=== PATIENT | male | born 1965 | race Two or more races ===

== ENCOUNTER 2024-06-18 23:53 | Inpatient (IN) | payer OTHER ==
[~2024-06-18] VITALS: Ht 167.6 cm; Wt 51.5 kg
[2024-06-19] VITALS (7 sets, daily range): BP systolic 122–138; BP diastolic 67–71; TEMP 97–98.1; O2SAT 97–100
[2024-06-19] MEDS ORDERED: FOLI1TAB94 PO (00:17)
[2024-06-19] MEDS ORDERED: ATOR20TA PO (00:17)
[2024-06-19] MEDS ORDERED: AMLO-212 PO (00:17)
[2024-06-19] MEDS ORDERED: CARV3.122 PO (00:17)
[2024-06-19] MEDS ORDERED: CHOL100034 PO (00:17)
[2024-06-19] MEDS ORDERED: CLOP75TA33 PO (00:17)
[2024-06-19] MEDS ORDERED: ASPI-1101 PO (00:17)
[2024-06-19 02:11] LABS: BASOPHILS # (AUTO) 0.1 K/UL (0.0-0.2); BASOPHILS % (AUTO) 1.8 % (0.0-2.0); EOSINOPHILS # (AUTO) 0.3 K/uL (0.0-0.7); EOSINOPHILS % (AUTO) 5.9 % (0.0-7.0); HEMATOCRIT 28.4 % (36.7-47.1); HEMOGLOBIN 9.5 g/dL (12.5-16.3); LYMPHOCYTES # (AUTO) 1.5 K/uL (0.8-4.8); LYMPHOCYTES % (AUTO) 30.4 % (20.5-51.5); MEAN CORPUSCULAR HGB CONC 33 g/dL (32.5-36.3); MEAN CORPUSCULAR VOLUME 90.3 fL (73.0-96.2); MONOCYTES # (AUTO) 0.4 K/uL (0.1-1.30); MONOCYTES % (AUTO) 7.5 % (0.0-11.0); NEUTROPHILS # (AUTO) 2.8 K/uL (1.8-8.9); NEUTROPHILS % (AUTO) 54.4 % (38.5-71.5); PLATELET COUNT (AUTO) 225 K/uL (152-348); RED BLOOD CELL COUNT(AUTO) 3.15 MIL/uL (4.06-5.63); RED CELL DISTRIBUTION WIDTH 20.5 % (12.1-16.2); WHITE BLOOD COUNT (AUTO) 5.1 K/uL (3.6-10.2)
[2024-06-19 02:13] LABS: CALCIUM 8.9 mg/dL (8.5-10.1); CREATININE 2.7 mg/dL (0.6-1.3); DIFFERENTIAL COMMENT 1; POTASSIUM 6.1 mmol/L (3.5-5.1)
[2024-06-19 02:19] LABS: ALBUMIN 2.2 g/dL (3.4-5.0); BILIRUBIN,TOTAL 0.2 mg/dL (0.2-1.0); TOTAL PROTEIN, SERUM 7.6 g/dL (6.4-8.2)
[2024-06-19] MEDS ORDERED: SODIUM BICARBONATE 8.4% 50 MEQ/50 ML DISP.SYRIN IV ONE (03:00)
[2024-06-19] MEDS: SODIUM BICARBONATE 8.4% 50 MEQ/50 ML VIAL IV ONE (03:10)
[2024-06-19] MEDS: IV NORMAL SALINE 1000 ML BAG IV ONE (03:10)
[2024-06-19] MEDS: ALBUTEROL SULFATE 2.5 MG/3 ML NEBU NEB ONE (03:21)
[2024-06-19] MEDS ORDERED: REMEDY ESSENTIAL ZINC PASTE 113 GM TP PRN (03:45)
[2024-06-19] MEDS ORDERED: ACETAMINOPHEN 325 MG TABLET PO PRN (03:45)
[2024-06-19] MEDS ORDERED: ONDANSETRON 4 MG/2 ML VIAL IV PRN (03:45)
[2024-06-19] MEDS ORDERED: MAGNESIUM HYDROXIDE 30 ML LIQUID UDC PO PRN (03:45)
[2024-06-19] MEDS: IV NS 1000 ML 1,000 ML IV PRN (06:54)
[2024-06-19 07:05] LABS: CALCIUM 8.8 mg/dL (8.5-10.1); CREATININE 2.5 mg/dL (0.6-1.3); POTASSIUM 5.4 mmol/L (3.5-5.1)
[2024-06-19] MEDS: AMLODIPINE 5 MG TABLET PO SCH (08:42)
[2024-06-19] MEDS: FOLIC ACID 1 MG TABLET PO SCH (08:42)
[2024-06-19] MEDS: CLOPIDOGREL 75 MG TABLET PO SCH (08:43)
[2024-06-19] MEDS: ASPIRIN EC 81 MG TABLET.DR PO SCH (08:43)
[2024-06-19] MEDS ORDERED: METF-440 PO (10:55)
[2024-06-19] MEDS ORDERED: OMEP20CA15 PO (10:55)
[2024-06-19] MEDS ORDERED: FOLI0.8T2 PO (10:55)
[2024-06-19] MEDS ORDERED: MULT-594 PO (10:55)
[2024-06-19] MEDS ORDERED: SULF1TAB48 PO (10:58)
[2024-06-19 13:51] LABS: CALCIUM 6.7 mg/dL (8.5-10.1); CREATININE 1.9 mg/dL (0.6-1.3); POTASSIUM 4.9 mmol/L (3.5-5.1)
[2024-06-19] MEDS: SODIUM ZIRCONIUM CYCLOSILICATE 10 GM POWD.PACK PO ONE (14:39)
[2024-06-19 18:02] LABS: *BILIRUBIN,URIN NEGATIVE (NEGATIVE); *BLOOD, URINE 2+ (NEGATIVE); *CLARITY,URINE CLEAR (CLEAR); *COLOR,URINE YELLOW (YELLOW); *KETONES,URINE NEGATIVE (NEGATIVE); *PROTEIN,URINE 3+ (NEGATIVE); *UROBILINOGEN,URINE 0.2 E.U./dl (NORMAL); LEUKOCYTE ESTERASE ,URINE TRACE (NEGATIVE); NITRITE, URINE POSITIVE (NEGATIVE); UGLUCOSE TRACE (NEGATIVE)
[2024-06-19 18:15] LABS: BACTERIA,URINE MANY /HPF (NONE SEEN); SQUAMOUS EPITHELIAL CELL,UR FEW /HPF (NONE SEEN)
[2024-06-19 18:18] LABS: *CREATININE,URINE 41.2 mg/dL (30-125); *URINE TOTAL PROTEIN RANDOM 307.1 mg/dL (<150/24HR)
[2024-06-20 00:49] VITALS: BP 141/75; TEMP 98; O2SAT 97
[2024-06-20 06:20] VITALS: BP 144/77; TEMP 97.9; O2SAT 94
[2024-06-20 06:28] LABS: BASOPHILS # (AUTO) 0.1 K/UL (0.0-0.2); BASOPHILS % (AUTO) 1.9 % (0.0-2.0); EOSINOPHILS # (AUTO) 0.3 K/uL (0.0-0.7); EOSINOPHILS % (AUTO) 6.5 % (0.0-7.0); HEMATOCRIT 23.7 % (36.7-47.1); HEMOGLOBIN 8.3 g/dL (12.5-16.3); LYMPHOCYTES # (AUTO) 1.4 K/uL (0.8-4.8); LYMPHOCYTES % (AUTO) 26.3 % (20.5-51.5); MEAN CORPUSCULAR HEMOGLOBIN 31.4 uug (23.8-33.4); MEAN CORPUSCULAR HGB CONC 35 g/dL (32.5-36.3); MEAN CORPUSCULAR VOLUME 89.9 fL (73.0-96.2); MONOCYTES # (AUTO) 0.3 K/uL (0.1-1.30); MONOCYTES % (AUTO) 5.7 % (0.0-11.0); NEUTROPHILS # (AUTO) 3.2 K/uL (1.8-8.9); NEUTROPHILS % (AUTO) 59.6 % (38.5-71.5); PLATELET COUNT (AUTO) 199 K/uL (152-348); RED BLOOD CELL COUNT(AUTO) 2.63 MIL/uL (4.06-5.63); RED CELL DISTRIBUTION WIDTH 20.4 % (12.1-16.2); WHITE BLOOD COUNT (AUTO) 5.3 K/uL (3.6-10.2)
[2024-06-20 06:45] LABS: DIFFERENTIAL COMMENT 1
[2024-06-20 06:55] LABS: BILIRUBIN,TOTAL 0.2 mg/dL (0.2-1.0); CALCIUM 8.4 mg/dL (8.5-10.1); CREATININE 2.2 mg/dL (0.6-1.3); MAGNESIUM 1.6 mg/dL (1.8-2.4); PHOSPHOROUS 4.1 mg/dL (2.5-4.9); POTASSIUM 5.7 mmol/L (3.5-5.1); TOTAL PROTEIN, SERUM 6.7 g/dL (6.4-8.2)
[2024-06-20 06:57] LABS: THYROID STIMULATING HORMONE 6.709 mIU/mL (0.358-3.740)
[2024-06-20 07:34] VITALS: BP 154/73; TEMP 98; O2SAT 96
[2024-06-20] MEDS: SODIUM ZIRCONIUM CYCLOSILICATE 10 GM POWD.PACK PO SCH (10:11)
[2024-06-20] MEDS: CEFTRIAXONE 1 G in IV DEXTROSE 5% 50 ML IV SCH (10:11)
[2024-06-20 11:33] VITALS: BP 145/75; TEMP 98; O2SAT 98
[2024-06-20 14:19] LABS: CALCIUM 7.6 mg/dL (8.5-10.1); CREATININE 2.1 mg/dL (0.6-1.3); POTASSIUM 5.5 mmol/L (3.5-5.1)
[2024-06-20] MEDS: MAGNESIUM OXIDE 400 MG TABLET PO ONE (14:53)
[2024-06-20 15:59] VITALS: BP 152/83; TEMP 97.4; O2SAT 94
[2024-06-20] MEDS: BLOOD SUGAR DIAGNOSTIC 1 EACH STRIP VI SCH (17:21)
[2024-06-20] MEDS: INSULIN REGULAR, HUMAN 1000 UNIT/10 ML VIAL SQ PRN (17:22)
[2024-06-20 19:20] VITALS: BP 158/80; TEMP 98.1; O2SAT 80
[2024-06-21 06:02] VITALS: BP 157/90; TEMP 97.9; O2SAT 83
[2024-06-21 07:00] LABS: BASOPHILS # (AUTO) 0.1 K/UL (0.0-0.2); BASOPHILS % (AUTO) 1.9 % (0.0-2.0); DIFFERENTIAL COMMENT 0; EOSINOPHILS # (AUTO) 0.4 K/uL (0.0-0.7); EOSINOPHILS % (AUTO) 6.3 % (0.0-7.0); HEMATOCRIT 24.4 % (36.7-47.1); HEMOGLOBIN 8.6 g/dL (12.5-16.3); LYMPHOCYTES # (AUTO) 1.7 K/uL (0.8-4.8); LYMPHOCYTES % (AUTO) 24.6 % (20.5-51.5); MEAN CORPUSCULAR HEMOGLOBIN 31.6 uug (23.8-33.4); MEAN CORPUSCULAR HGB CONC 35 g/dL (32.5-36.3); MEAN CORPUSCULAR VOLUME 89.9 fL (73.0-96.2); MONOCYTES # (AUTO) 0.3 K/uL (0.1-1.30); MONOCYTES % (AUTO) 4.7 % (0.0-11.0); NEUTROPHILS # (AUTO) 4.2 K/uL (1.8-8.9); NEUTROPHILS % (AUTO) 62.5 % (38.5-71.5); PLATELET COUNT (AUTO) 200 K/uL (152-348); RED BLOOD CELL COUNT(AUTO) 2.71 MIL/uL (4.06-5.63); RED CELL DISTRIBUTION WIDTH 20.2 % (12.1-16.2); WHITE BLOOD COUNT (AUTO) 6.7 K/uL (3.6-10.2)
[2024-06-21 07:12] LABS: CALCIUM 8.2 mg/dL (8.5-10.1); CREATININE 2.4 mg/dL (0.6-1.3); MAGNESIUM 1.7 mg/dL (1.8-2.4); PHOSPHOROUS 3.5 mg/dL (2.5-4.9); POTASSIUM 5.9 mmol/L (3.5-5.1)
[2024-06-21] MEDS: GLIMEPIRIDE 2 MG TABLET PO SCH (07:59)
[2024-06-21] MEDS: FOLIC ACID/VITAMIN B COMP W-C TABLET PO SCH (08:08)
[2024-06-21] MEDS: SODIUM ZIRCONIUM CYCLOSILICATE 10 GM POWD.PACK PO ONE (08:31)
[2024-06-21] MEDS: FUROSEMIDE 40 MG/4 ML VIAL IV ONE (08:31)
[2024-06-21] MEDS: IV NS 1000 ML 1,000 ML IV PRN (09:25)
[2024-06-21 10:10] LABS: PTH, INTACT 42 pg/mL (15-65)
[2024-06-21 11:35] VITALS: BP 154/84; TEMP 97.7; O2SAT 94
[2024-06-21 14:11] LABS: CREATININE 2.3 mg/dL (0.6-1.3); POTASSIUM 4.6 mmol/L (3.5-5.1)
[2024-06-21] MEDS: MAGNESIUM OXIDE 400 MG TABLET PO ONE (14:19)
[2024-06-21 14:23] LABS: CALCIUM 7.8 mg/dL (8.5-10.1)
[2024-06-21 15:36] VITALS: BP 138/75; TEMP 97.5; O2SAT 93
[2024-06-21] MEDS ORDERED: ATOR10TA PO (15:40)
[2024-06-21] MEDS ORDERED: CIPR-263 PO (15:40)
[2024-06-21] MEDS ORDERED: GLIM2TAB PO (15:40)
[2024-06-21] MEDS: DEXTROSE 50% 50 ML DISP.SYRIN IV PRN (16:55)
== END 2024-06-21 17:33 | DRG 425 ==
LOC: ER 06-19 00:01 → TELE3 06-19 03:40 → MEDSURG3 06-20 11:50
PROVIDERS: ADMIT Nurse Practitioner Acute Care; ATTEND Nurse Practitioner Acute Care
DX: E87.5 Hyperkalemia (principal); N17.0 Acute kidney failure with tubular necrosis; G92.8 Other toxic encephalopathy; N39.0 Urinary tract infection, site not specified; D63.1 Anemia in chronic kidney disease; E11.22 Type 2 diabetes mellitus with diabetic chronic kidney disease; I50.22 Chronic systolic (congestive) heart failure; I13.0 Hypertensive heart and chronic kidney disease with heart failure and stage 1 through stage 4 chronic kidney disease, or unspecified chronic kidney disease; E11.51 Type 2 diabetes mellitus with diabetic peripheral angiopathy without gangrene; N18.9 Chronic kidney disease, unspecified; E78.5 Hyperlipidemia, unspecified; I25.10 Atherosclerotic heart disease of native coronary artery without angina pectoris; R13.10 Dysphagia, unspecified; M89.8X9 Other specified disorders of bone, unspecified site; I34.0 Nonrheumatic mitral (valve) insufficiency; Z91.81 History of falling; Z87.09 Personal history of other diseases of the respiratory system; Z79.02 Long term (current) use of antithrombotics/antiplatelets; Z79.899 Other long term (current) drug therapy; Z79.84 Long term (current) use of oral hypoglycemic drugs; K21.9 Gastro-esophageal reflux disease without esophagitis; R26.9 Unspecified abnormalities of gait and mobility; R94.31 Abnormal electrocardiogram [ECG] [EKG]
CPT/HCPCS: 36415; 70450; 71045; 72170; 76775; 83550; 83735; 83970; 84100; 84155; 84165; 84300; 84443; 84484; 85025; 87077; 87086; 93005; A4606; A4663; G0378; J0696; J1815; J1938; J3490; J7040

== ENCOUNTER 2025-01-12 19:28 | Inpatient (IN) | payer OTHER ==
[~2025-01-12] VITALS: Ht 167.6 cm; Wt 51.4 kg
[~2025-01-12 19:28] MED LIST: AMLO-212 PO; ASPI-1101 PO; ATOR10TA PO; CARV3.122 PO; CHOL100034 PO; CIPR-263 PO; CLOP75TA33 PO; FOLI0.8T2 PO; FOLI1TAB94 PO; GLIM2TAB PO; MULT-594 PO; OMEP20CA15 PO
[2025-01-12 19:59] LABS: PLATELET COUNT (AUTO) 300 K/uL (152-348); RED BLOOD CELL COUNT(AUTO) 3.47 MIL/uL (4.06-5.63); RED CELL DISTRIBUTION WIDTH 18.1 % (12.1-16.2); WHITE BLOOD COUNT (AUTO) 5.8 K/uL (3.6-10.2)
[2025-01-12 20:12] LABS: CREATININE 4.7 mg/dL (0.6-1.3); SODIUM SERUM 141.0 mmol/L (136-145)
[2025-01-12 20:14] LABS: UREA NITROGEN, BLOOD 110.0 mg/dL (7-18)
[2025-01-12 20:18] LABS: ASPARTATE AMINOTRANSFERASE 12.0 U/L (15-37); TOTAL PROTEIN, SERUM 8.2 g/dL (6.4-8.2)
[2025-01-12 20:51] LABS: *BILIRUBIN,URIN NEGATIVE (NEGATIVE); *BLOOD, URINE 2+ (NEGATIVE); *COLOR,URINE YELLOW (YELLOW); *KETONES,URINE NEGATIVE (NEGATIVE); *PROTEIN,URINE 3+ (NEGATIVE); *UROBILINOGEN,URINE 0.2 E.U./dl (NORMAL); LEUKOCYTE ESTERASE ,URINE 1+ (NEGATIVE); NITRITE, URINE NEGATIVE (NEGATIVE); UGLUCOSE NEGATIVE (NEGATIVE)
[2025-01-12 20:52] LABS: *CLARITY,URINE HAZY (CLEAR)
[2025-01-12] MEDS ORDERED: B COMPLEX WITH FOLIC PO (20:54)
[2025-01-12] MEDS ORDERED: OMEP20CA15 PO (20:54)
[2025-01-12] MEDS ORDERED: ZINC57OI3 TP (20:54)
[2025-01-12] MEDS ORDERED: ACET-3117 PO (20:54)
[2025-01-12] MEDS ORDERED: ONDA4TAB5 PO (20:54)
[2025-01-12] MEDS ORDERED: FERR-56 PO (20:54)
[2025-01-12] MEDS ORDERED: VANC125C18 PO (20:54)
[2025-01-12] MEDS ORDERED: TAMS0.4C PO (20:54)
[2025-01-12] MEDS ORDERED: ASCO500C18 PO (20:54)
[2025-01-12] MEDS ORDERED: INSU100V28 (20:54)
[2025-01-12] MEDS ORDERED: FURO40TA5 PO (20:54)
[2025-01-12] MEDS ORDERED: CARV6.252 PO (20:54)
[2025-01-12] MEDS ORDERED: TRAM50TA2 PO (20:54)
[2025-01-12 21:00] LABS: SQUAMOUS EPITHELIAL CELL,UR FEW /HPF (NONE SEEN)
[2025-01-12] MEDS ORDERED: CEFTRIAXONE /D5W 50ML IVPB **ER PYXIS IV ONE (22:24)
[2025-01-12] MEDS ORDERED: ONDANSETRON 4 MG/2 ML VIAL IV PRN (23:15)
[2025-01-12] MEDS ORDERED: ACETAMINOPHEN 325 MG TABLET PO PRN (23:15)
[2025-01-13] MEDS ORDERED: LIDOCAINE 2% (GLYDO= UROJET) 10 ML JELLY MM ONE (00:20)
[2025-01-13] MEDS: LIDOCAINE 2% (GLYDO= UROJET) 10 ML JELLY MM ONE (01:44)
[2025-01-13 04:00] VITALS: BP 112/76
[2025-01-13] MEDS: IV 1/2NS 1000 ML 1,000 ML IV PRN (06:27)
[2025-01-13 06:43] LABS: PLATELET COUNT (AUTO) 285 K/uL (152-348); RED BLOOD CELL COUNT(AUTO) 3.46 MIL/uL (4.06-5.63); RED CELL DISTRIBUTION WIDTH 17.7 % (12.1-16.2); WHITE BLOOD COUNT (AUTO) 6.0 K/uL (3.6-10.2)
[2025-01-13 07:01] LABS: CREATININE 4.6 mg/dL (0.6-1.3); SODIUM SERUM 140.0 mmol/L (136-145)
[2025-01-13 07:18] LABS: UREA NITROGEN, BLOOD 105.0 mg/dL (7-18)
[2025-01-13] MEDS: PANTOPRAZOLE SODIUM 40 MG TABLET.DR PO SCH (07:46)
[2025-01-13 08:00] VITALS: BP 145/71; TEMP 90.7; O2SAT 100
[2025-01-13] MEDS ORDERED: ACET-3752 PO (09:39)
[2025-01-13] MEDS ORDERED: ASCO500T16 PO (09:39)
[2025-01-13] MEDS ORDERED: FOLI0.8T23 PO (09:39)
[2025-01-13] MEDS ORDERED: CHOL-35 PO (09:39)
[2025-01-13 12:00] VITALS: BP 134/69; TEMP 93.7; O2SAT 99
[2025-01-13] MEDS ORDERED: TRAMADOL HCL 50 MG TABLET PO PRN (12:30)
[2025-01-13] MEDS ORDERED: DOSING BY PHARMACY-MD TO SPECIFY MED/ROUTE XX PRN (12:30)
[2025-01-13] MEDS: MEROPENEM 500 MG in IV NORMAL SALINE 50 ML IV SCH (13:36)
[2025-01-13 16:03] VITALS: BP 137/67; TEMP 98.4; O2SAT 100
[2025-01-13] MEDS: FERROUS SULFATE 325 MG TABEC PO SCH (17:00)
[2025-01-13] MEDS: CHOLECALCIFEROL 1,000 UNIT TABLET PO SCH (17:00)
[2025-01-13] MEDS: NEPRO (VANILLA) 237 ML CAN PO SCH (17:00)
[2025-01-13 19:45] VITALS: BP 141/51; TEMP 99.5; O2SAT 95
[2025-01-13] MEDS: TAMSULOSIN HCL 0.4 MG CAP.SR.24H PO SCH (20:44)
[2025-01-13] MEDS: ATORVASTATIN 10 MG TABLET PO SCH (20:51)
[2025-01-14 00:09] VITALS: BP 139/75; TEMP 98; O2SAT 97
[2025-01-14 04:41] VITALS: BP 135/72; TEMP 97.5; O2SAT 98
[2025-01-14 07:02] LABS: ASPARTATE AMINOTRANSFERASE 11.0 U/L (15-37); CREATINE KINASE, TOTAL 18.0 U/L (39-308); CREATININE 4.8 mg/dL (0.6-1.3); SODIUM SERUM 141.0 mmol/L (136-145); TOTAL PROTEIN, SERUM 7.8 g/dL (6.4-8.2)
[2025-01-14 07:04] LABS: UREA NITROGEN, BLOOD 106.0 mg/dL (7-18)
[2025-01-14 07:07] LABS: PLATELET COUNT (AUTO) 294 K/uL (152-348); RED BLOOD CELL COUNT(AUTO) 3.28 MIL/uL (4.06-5.63); RED CELL DISTRIBUTION WIDTH 17.3 % (12.1-16.2); WHITE BLOOD COUNT (AUTO) 7.9 K/uL (3.6-10.2)
[2025-01-14 07:33] VITALS: BP 149/74; TEMP 97.8; O2SAT 100
[2025-01-14] MEDS ORDERED: VANCOMYCIN HCL 250 MG CAPSULE PO SCH (09:00)
[2025-01-14] MEDS: ASCORBIC ACID 500 MG TABLET PO SCH (09:58)
[2025-01-14] MEDS: FOLIC ACID/VITAMIN B COMP W-C TABLET PO SCH (09:58)
[2025-01-14] MEDS: CLOPIDOGREL 75 MG TABLET PO SCH (09:59)
[2025-01-14] MEDS: ASPIRIN EC 81 MG TABLET.DR PO SCH (09:59)
[2025-01-14] MEDS: ARGININE/GLUTAMINE/CALCIUM BMB 1 EACH POWD.PACK PO SCH (10:03)
[2025-01-14] MEDS: VANCOMYCIN HCL 125 MG CAPSULE PO SCH (10:05)
[2025-01-14 11:33] VITALS: BP 137/77; TEMP 97.7; O2SAT 100
[2025-01-14] MEDS: MEGESTROL ACETATE 20 MG TABLET PO SCH (12:53)
[2025-01-14 15:33] VITALS: BP 157/83; TEMP 97.7; O2SAT 100
[2025-01-14 18:16] LABS: *CREATININE,URINE 44.4 mg/dL (30-125); *SODIUM RNDM,URINE 44.0 mmol/L (40-220); *URINE TOTAL PROTEIN RANDOM 215.9 mg/dL (<150/24HR)
[2025-01-14 19:00] VITALS: BP 150/78; TEMP 98.3; O2SAT 99
[2025-01-15] VITALS (7 sets, daily range): BP systolic 112–163; BP diastolic 50–82; TEMP 97–98.9; O2SAT 96–99
[2025-01-15 02:47] LABS: *BILIRUBIN,URIN NEGATIVE (NEGATIVE); *BLOOD, URINE 2+ (NEGATIVE); *COLOR,URINE YELLOW (YELLOW); *KETONES,URINE NEGATIVE (NEGATIVE); *PROTEIN,URINE 3+ (NEGATIVE); *UROBILINOGEN,URINE 0.2 E.U./dl (NORMAL); LEUKOCYTE ESTERASE ,URINE 2+ (NEGATIVE); NITRITE, URINE NEGATIVE (NEGATIVE); UGLUCOSE NEGATIVE (NEGATIVE)
[2025-01-15 02:50] LABS: *CLARITY,URINE SLIGHTLY CLOUDY (CLEAR)
[2025-01-15 03:25] LABS: SQUAMOUS EPITHELIAL CELL,UR FEW /HPF (NONE SEEN)
[2025-01-15 05:12] LABS: PTH, INTACT 80 pg/mL (15-65)
[2025-01-15 07:27] LABS: PLATELET COUNT (AUTO) 281 K/uL (152-348); RED BLOOD CELL COUNT(AUTO) 3.40 MIL/uL (4.06-5.63); RED CELL DISTRIBUTION WIDTH 17.3 % (12.1-16.2); WHITE BLOOD COUNT (AUTO) 8.6 K/uL (3.6-10.2)
[2025-01-15 08:01] LABS: ASPARTATE AMINOTRANSFERASE 15.0 U/L (15-37); CREATININE 4.2 mg/dL (0.6-1.3); SODIUM SERUM 140.0 mmol/L (136-145); TOTAL PROTEIN, SERUM 7.7 g/dL (6.4-8.2)
[2025-01-15 08:22] LABS: ERYTHROCYTE SEDIMENTATION RATE 114 MM/HR (0-15)
[2025-01-15 08:37] LABS: UREA NITROGEN, BLOOD 99.0 mg/dL (7-18)
[2025-01-16 04:00] VITALS: BP 164/82; TEMP 97.6; O2SAT 97
[2025-01-16 06:44] VITALS: BP 138/76
[2025-01-16 07:47] LABS: PLATELET COUNT (AUTO) 281 K/uL (152-348); RED BLOOD CELL COUNT(AUTO) 3.29 MIL/uL (4.06-5.63); RED CELL DISTRIBUTION WIDTH 17.7 % (12.1-16.2); WHITE BLOOD COUNT (AUTO) 8.9 K/uL (3.6-10.2)
[2025-01-16 07:59] LABS: CREATININE 3.8 mg/dL (0.6-1.3); SODIUM SERUM 138.0 mmol/L (136-145)
[2025-01-16 08:11] LABS: COMPLEMENT, C3 SERUM 100 mg/dL (82-167); COMPLEMENT, C4 SERUM 32 mg/dL (12-38)
[2025-01-16 08:12] LABS: UREA NITROGEN, BLOOD 98.0 mg/dL (7-18)
[2025-01-16 08:25] VITALS: BP 162/75; TEMP 97.6; O2SAT 96
[2025-01-16 09:52] LABS: EOSINOPHILS % (MANUAL) 2 % (0-8); LYMPHOCYTES % (MANUAL) 6 % (20-40); MONOCYTES % (MANUAL) 3 % (2-10); NEUTROPHILS % (MANUAL) 89 % (42-75); PLATELET ESTIMATE ADEQUATE
[2025-01-16 11:14] VITALS: BP 171/94; TEMP 97.8; O2SAT 98
[2025-01-16 16:16] VITALS: BP 154/75; TEMP 97.6; O2SAT 98
[2025-01-17 07:00] LABS: PLATELET COUNT (AUTO) 297 K/uL (152-348); RED BLOOD CELL COUNT(AUTO) 3.31 MIL/uL (4.06-5.63); RED CELL DISTRIBUTION WIDTH 17.8 % (12.1-16.2); WHITE BLOOD COUNT (AUTO) 7.7 K/uL (3.6-10.2)
[2025-01-17 07:07] LABS: CREATININE 3.8 mg/dL (0.6-1.3); SODIUM SERUM 139.0 mmol/L (136-145)
[2025-01-17 07:34] LABS: UREA NITROGEN, BLOOD 95.0 mg/dL (7-18)
[2025-01-17 08:00] VITALS: BP 156/85; TEMP 98.3; O2SAT 97
[2025-01-17] MEDS: CARVEDILOL 6.25 MG TABLET PO SCH (09:30)
[2025-01-17] MEDS: AMLODIPINE 5 MG TABLET PO SCH (09:30)
[2025-01-17 12:00] VITALS: BP 158/79; TEMP 97.6; O2SAT 98
[2025-01-17 16:00] VITALS: BP 156/82; TEMP 97.4; O2SAT 99
[2025-01-17 19:05] VITALS: BP 161/84; TEMP 97.7; O2SAT 99
[2025-01-18 01:10] LABS: HEPATITIS B SURFACE AB, QUAL Non Reactive (.); HEPATITIS B SURFACE AG Negative (Negative); HEPATITIS C VIRUS ANTIBODY Non Reactive (Non Reactive)
[2025-01-18 05:21] VITALS: BP 154/72; TEMP 98.8; O2SAT 98
[2025-01-18 06:10] LABS: A/G RATIO 0.5 (0.7-1.7); BETA GLOBULIN 1.2 g/dL (0.7-1.3); GLOBULIN, TOTAL 4.8 g/dL (2.2-3.9); M-SPIKE Not Observed g/dL (Not Observed); PROTEIN, TOTAL 7.1 g/dL (6.0-8.5)
[2025-01-18 06:51] LABS: PLATELET COUNT (AUTO) 270 K/uL (152-348); RED BLOOD CELL COUNT(AUTO) 3.28 MIL/uL (4.06-5.63); RED CELL DISTRIBUTION WIDTH 17.7 % (12.1-16.2); WHITE BLOOD COUNT (AUTO) 7.1 K/uL (3.6-10.2)
[2025-01-18 07:06] LABS: CREATININE 3.7 mg/dL (0.6-1.3); SODIUM SERUM 142.0 mmol/L (136-145)
[2025-01-18 07:13] LABS: UREA NITROGEN, BLOOD 88.0 mg/dL (7-18)
[2025-01-18 10:12] LABS: *ANTI-SCLERODERMA-70 AB <0.2 AI (0.0-0.9); *RNP ANTIBODIES <0.2 AI (0.0-0.9); *SJOGREN'S ANTI-SS-A <0.2 AI (0.0-0.9); *SJOGREN'S ANTI-SS-B <0.2 AI (0.0-0.9); *SMITH ANTIBODIES <0.2 AI (0.0-0.9); ANTI-DNA(DS) AB, QN 1 IU/mL (0-9); ANTI-NUCLEAR AB DIRECT Negative (Negative)
[2025-01-18] MEDS ORDERED: FLUMAZENIL 0.5 MG/5 ML VIAL IVP PRN (10:30)
[2025-01-18] MEDS ORDERED: MIDAZOLAM HCL 2 MG/2 ML VIAL IV PRN (10:30)
[2025-01-18] MEDS ORDERED: NALOXONE HCL 0.4 MG/ML AMPUL IV PRN (10:30)
[2025-01-18] MEDS ORDERED: FENTANYL CITRATE 100 MCG/2 ML AMPUL IV ONE (10:30)
[2025-01-18 12:00] VITALS: BP 160/87; TEMP 97.6; O2SAT 98
[2025-01-18 16:00] VITALS: BP 137/70; TEMP 93.8; O2SAT 99
[2025-01-18 19:47] VITALS: BP 141/76; TEMP 97.4; O2SAT 99
[2025-01-19 04:51] VITALS: BP 159/81; TEMP 97.9; O2SAT 100
[2025-01-19 11:56] VITALS: BP 153/74; TEMP 99.8; O2SAT 100
[2025-01-19 16:10] VITALS: BP 160/74; TEMP 98.7; O2SAT 100
[2025-01-19] MEDS: CLOPIDOGREL 75 MG TABLET PO SCH (17:51)
[2025-01-19] MEDS: ASPIRIN 81 MG TAB.CHEW PO SCH (17:51)
[2025-01-19 19:48] VITALS: BP 145/66; TEMP 98; O2SAT 98
[2025-01-20 04:30] VITALS: BP 155/75; TEMP 97.8; O2SAT 100
[2025-01-20 06:16] LABS: PLATELET COUNT (AUTO) 241 K/uL (152-348); RED BLOOD CELL COUNT(AUTO) 2.97 MIL/uL (4.06-5.63); RED CELL DISTRIBUTION WIDTH 17.5 % (12.1-16.2); WHITE BLOOD COUNT (AUTO) 7.7 K/uL (3.6-10.2)
[2025-01-20 06:26] LABS: CREATININE 3.7 mg/dL (0.6-1.3); SODIUM SERUM 140.0 mmol/L (136-145)
[2025-01-20 06:38] LABS: UREA NITROGEN, BLOOD 93.0 mg/dL (7-18)
[2025-01-20 11:39] VITALS: BP 167/82; O2SAT 100
[2025-01-20] MEDS: MAGNESIUM OXIDE 400 MG TABLET PO ONE (12:34)
[2025-01-20 15:52] VITALS: BP 138/76; TEMP 93.2; O2SAT 99
[2025-01-20 20:00] VITALS: BP 157/80; TEMP 98; O2SAT 98
[2025-01-21 05:00] VITALS: BP 163/83; TEMP 97.8; O2SAT 98
[2025-01-21 07:22] LABS: CREATININE 3.8 mg/dL (0.6-1.3); SODIUM SERUM 139.0 mmol/L (136-145)
[2025-01-21 07:26] LABS: UREA NITROGEN, BLOOD 90.0 mg/dL (7-18)
[2025-01-21] MEDS ORDERED: MEGE20TA7 PO (09:15)
[2025-01-21] MEDS ORDERED: NUT.237L67 PO (09:15)
[2025-01-21] MEDS ORDERED: NUTR1PAC14 PO (09:15)
[2025-01-21 11:05] VITALS: BP 129/58; TEMP 97.7; O2SAT 98
== END 2025-01-21 12:45 | DRG 463 ==
LOC: ER 19:37 → TELE3 23:10 → MEDSURG3 01-17 11:20
PROVIDERS: ADMIT Nurse Practitioner Family; ATTEND Nurse Practitioner Family
PROC: 0TB13ZX Excision of Left Kidney, Percutaneous Approach, Diagnostic (ICD-10-PCS; principal; 2025-01-18)
DX: N39.0 Urinary tract infection, site not specified (principal); N17.0 Acute kidney failure with tubular necrosis; R64 Cachexia; E44.0 Moderate protein-calorie malnutrition; D63.1 Anemia in chronic kidney disease; F50.89 Other specified eating disorder; E88.09 Other disorders of plasma-protein metabolism, not elsewhere classified; B96.20 Unspecified Escherichia coli [E. coli] as the cause of diseases classified elsewhere; Z79.02 Long term (current) use of antithrombotics/antiplatelets; I13.0 Hypertensive heart and chronic kidney disease with heart failure and stage 1 through stage 4 chronic kidney disease, or unspecified chronic kidney disease; E11.22 Type 2 diabetes mellitus with diabetic chronic kidney disease; N18.4 Chronic kidney disease, stage 4 (severe); J44.9 Chronic obstructive pulmonary disease, unspecified; I50.22 Chronic systolic (congestive) heart failure; N05.9 Unspecified nephritic syndrome with unspecified morphologic changes; D50.9 Iron deficiency anemia, unspecified; E78.5 Hyperlipidemia, unspecified; S72.002D Fracture of unspecified part of neck of left femur, subsequent encounter for closed fracture with routine healing; X58.XXXD Exposure to other specified factors, subsequent encounter; Z16.12 Extended spectrum beta lactamase (ESBL) resistance; K21.9 Gastro-esophageal reflux disease without esophagitis; I25.10 Atherosclerotic heart disease of native coronary artery without angina pectoris; N40.0 Benign prostatic hyperplasia without lower urinary tract symptoms; Z79.82 Long term (current) use of aspirin; Z84.19 Family history of other disorders of kidney and ureter; Z79.899 Other long term (current) drug therapy; Z79.84 Long term (current) use of oral hypoglycemic drugs; Z68.1 Body mass index [BMI] 19.9 or less, adult
CPT/HCPCS: 36415; 70030-TC; 71045; 72170; 73502; 76770; 83735; 83970; 84100; 84155; 84165; 84300; 85025; 85610; 85651; 85730; 86038; 86160; 86706; 86803; 87077; 87086; 87340; 93005; A4606; A4663; G0378; J0360; J0696; J2185; J2250; J3010; J7040